=== PATIENT | female | born 1985 | race Caucasian/White ===

== ENCOUNTER 2020-08-23 15:58 | Inpatient (IN) | payer OTHER ==
[2020-08-23] MEDS ORDERED: miSOPROStoL 100 MCG TAB VAG SCH (16:45)
[2020-08-23] MEDS ORDERED: miSOPROStoL 100 MCG TAB ONE (16:57)
[2020-08-23 18:10] VITALS: BMI 36.2
[2020-08-23] MEDS ORDERED: Ringers Lactate 1,000 ML IV PRN (18:45)
[2020-08-23] MEDS ORDERED: PROMETHAZINE INJ 25 MG/ML AMP IV PRN (18:45)
[2020-08-23] MEDS ORDERED: BUTORPHANOL 1 MG/ML INJ IV PRN (18:45)
[2020-08-23] MEDS ORDERED: CARBOPROST TROME 250 MCG/ML IM PRN (18:45)
[2020-08-23] MEDS ORDERED: METHYLERGONOVINE 0.2MG/ML AMP IM PRN (18:45)
[2020-08-23] MEDS ORDERED: Ringers Lactate 1,000 ML IV SCH (19:00)
[2020-08-23] MEDS ORDERED: OXYTOCIN/LR 20 UNIT/1,000 ML BAG IV SCH (19:00)
[2020-08-23 19:42] LABS: Urine Appearance CLEAR; Urine Bilirubin NEGATIVE (NEG); Urine Blood NEGATIVE (NEG); Urine Color YELLOW; Urine Glucose NEGATIVE (NEG); Urine Protein NEGATIVE (NEG); Urine Specific Gravity 1.015 (1.005-1.030); Urine Urobilinogen 0.2 mg/dL (0.2-1.0); Urine pH 6.5 (5.0-7.0)
[2020-08-23 19:46] LABS: Urine Microscopic Reflex NO UMIC
[2020-08-23 19:54] LABS: Absolute Lymphocytes (CBC) 3.1 K/uL (0.7-4.9); Basophils % 0.4 % (0-1.3); Hematocrit 38.5 % (36.0-45.0); Lymphocytes % 21.1 % (15.3-44.8); MPV 8.5 fL (7.6-11.3); RBC Red Blood Cell Count 4.24 M/uL (3.86-4.86)
[2020-08-23] MEDS ORDERED: hydrOXYzine HCL 25 MG TAB PO ONE (20:54)
[2020-08-23 22:51] LABS: RPR (Rapid Plasma Reagin) NON-REACT (NON-REACT)
--- NOTE | 2020-08-24 07:03 | P.PN ---
Date of Service: 08/24/20 Ctx regular with Misoprostel, reactive fht's with no periodic decells. Cx 1+, vtx asynclitic, minus 2 station. Pllan: One more 25mcg dose of Misoprostel at 0800, will attempt AROM 10-12 today. Plan discussed with pt.
[2020-08-24] MEDS ORDERED: miSOPROStoL 100 MCG TAB ONE (07:48)
--- NOTE | 2020-08-24 09:52 | PREOPHP ---
Date of Admission: 08/23/2020 History Of Present Illness: Ms. Diego is a 34-year-old female, 3, para 1-0-1-1 now at 31 and 1 week's gestation. She has been followed by me during this without significant complications other than history of with positive HSV. She has been on suppress bora therapy since 36 weeks gestation consisting of Valtrex daily. Past Medical History: Please see record. Family History: Please see record. Review of Systems: She reports no recent cough, cold, fever, or chills. No recent nausea or vomiting. No breast knots or lumps. No bowel or bladder issues. Infant active. Physical Examination: General: Reveals pleasant female, in no apparent distress. Neck: Supple without adenopathy or thyromegaly. Lungs: Clear. Cardiac: Regular rate and rhythm without murmurs. Breasts: Not examined. Abdomen: Estimated weight of 7+ pounds. Pelvic: Cervix 1 cm long, vertex, and -2 station. Extremities: No cyanosis, clubbing, edema. Plan: The patient will undergo misoprostol induction of labor this evening. Risks and benefits are discussed. She has signed operative permit. SHERMAN/NICK Voice ID: [id number]
[2020-08-24] MEDS ORDERED: FENTANYL CITR 100 MCG/2 ML IV ONE (15:56)
[2020-08-24] MEDS ORDERED: FENTANYL/BUPIVACAINE/NS/PF 200 MCG/100 ML BAG EP PRN (15:56)
[2020-08-24] MEDS ORDERED: BUPIVACAINE 0.25% PF 10 ML VIAL IJ PRN (15:56)
[2020-08-24] MEDS ORDERED: LIDOCAINE 1% MPF 30 ML VIAL ONE (16:19)
[2020-08-24] MEDS ORDERED: METHYLERGONOVINE 0.2MG/ML AMP IM ONE (16:20)
[2020-08-24] MEDS ORDERED: CARBOPROST TROME 250 MCG/ML IM ONE (16:20)
[2020-08-24] MEDS ORDERED: CARBOPROST TROME 250 MCG/ML IM PRN (17:38)
[2020-08-24] MEDS ORDERED: METHYLERGONOVINE 0.2 MG TAB PO PRN (17:38)
[2020-08-24] MEDS ORDERED: ACETAMINOPHEN 500 MG TAB PO PRN (17:38)
[2020-08-24] MEDS ORDERED: METHYLERGONOVINE 0.2MG/ML AMP IM PRN (17:38)
--- NOTE | 2020-08-24 17:42 | P.BOP ---
Preoperative diagnosis: 39+wk Postoperative diagnosis: same, delivered Primary procedure: Low outlet forceps delivery viable male infant Secondary procedure: repair of 3 first degree perineal lacerations Estimated blood loss: Less than 100ml. Anesthesia: epidural Complications: None Complications: Severe variable decellerations in late labor Transferred to: Other (272) Condition: Good
[2020-08-24] MEDS ORDERED: OXYTOCIN/LR 20 UNIT/1,000 ML BAG IV SCH (18:00)
[2020-08-24] MEDS ORDERED: IBUPROFEN 600 MG TAB PO PRN (18:12)
[2020-08-25] MEDS ORDERED: Ringers Lactate 2,000 ML IV ONE (07:33)
--- NOTE | 2020-08-25 08:05 | DS ---
Final Hospital Discharge Diagnosis: 39 week , delivered. Complications: None. Procedures: Cytotec induction of labor, Pitocin augmentation of labor, low outlet forceps delivery o f viable male , repair of first-degree perineal lacerations x3, placement of epidural catheter. Hospital Course: The patient is a 34-year-old female, 3, para 1-0-1-1 at 3 9 weeks gestation, admitted for Cytotec induction of labor. She underwent low outlet forceps deliver y secondary to severe variable decelerations during second stage of labor of a 6 pounds 10 ounces mal e , 9 and 9 with epidural anesthesia. She was dismissed on the first day, amb ulatory, on a select diet, to be seen back in my office in 6 weeks. Lab work included an admission h emoglobin and hematocrit of 13.1 and 38.5, dismissal hematocrit of 36.5. She is O positive blood typ e. Antibody screen negative. Urinalysis was negative. She is RPR nonreactive. She was dismissed t o take ibuprofen or Tylenol for any perineal discomfort and for cramping, and to continue taking her iron and vitamins. She was dismissed with the usual vaginal delivery activity restrictions. SHERMAN/NICK Voice ID: [id number] Report ID: [id number]
[2020-08-25 08:29] VITALS: BP 118/56; TEMP 97.4
--- NOTE | 2020-08-25 08:50 | DN ---
Surgeon: Eligio Bucio MD Ms. Diego is a 34-year-old female, 3, para 1-0-1-1, now at 39+ weeks [facility], admitted for induction of labor because of initially unfavorable cervix. She was begun with Cytotec 25 mcg q.4 to 6 hours to induce labor. After approximately fourth dose of medicine, artific ial rupture of membranes was performed and Pitocin augmentation was begun. After artificial rupture of membranes, she had an approximately 5-hour first stage of labor, second stage of labor of 2 minute s, delivered by low-outlet forceps of a 6-pound 10-ounce male infant, 9. Infant was delivered. After delayed cord clamping, cord was clamped, cut, and the placed on mother's upper abdomen . Cord blood was obtained. She was delivered by low outlet forceps secondary to severe variable dec eleration during second stage of labor. She suffered bilateral first-degree lacerations and right po sterior first-degree laceration repaired with simple sutures of 3-0 Vicryl. Estimated total blood lo ss was less than 100 cc. She utilized epidural anesthesia placed approximately 3+ cm before that rec eived 1 mg of Stadol, one 25 mg dose of Phenergan. Quantitative blood loss was 133 mL. SHERMAN/NICK Voice ID: [id number] Report ID: [id number]
[2020-08-25] MEDS ORDERED: Tdap (Diph,Pertuss(Acell),Tet Vac) 0.5 ML SYR IMVAC ONE (09:05)
[2020-08-27 03:13] LABS: HBsAG Nonreactive (Nonreactive)
== END 2020-08-25 09:30 | disposition home or self-care (01) | DRG 807 ==
LOC: 2ND-WC 15:58
PROVIDERS: ADMIT Specialist; ATTEND Specialist
PROC: 3E0P7VZ Introduction of Hormone into Female Reproductive, Via Natural or Artificial Opening (ICD-10-PCS; principal; 2020-08-25)
PROC: 10D07Z3 Extraction of Products of Conception, Low Forceps, Via Natural or Artificial Opening (ICD-10-PCS; 2020-08-25)
PROC: 10907ZC Drainage of Amniotic Fluid, Therapeutic from Products of Conception, Via Natural or Artificial Opening (ICD-10-PCS; 2020-08-25)
PROC: 0HQ9XZZ Repair Perineum Skin, External Approach (ICD-10-PCS; 2020-08-25)
DX: O98.32 Other infections with a predominantly sexual mode of transmission complicating childbirth (principal); Z37.0 Single live birth; A60.09 Herpesviral infection of other urogenital tract; Z3A.39 39 weeks gestation of pregnancy; Z20.828 Contact with and (suspected) exposure to other viral communicable diseases; Z23 Encounter for immunization
CPT/HCPCS: 36415; 81003; 85014; 85025; 86592; 86850; 86900; 86901; 87340; 90471; 90715; J0595; J2210; J2550; J2590; J3010; J7120; U0003